=== PATIENT | female | born 1950 | race Caucasian/White ===

== ENCOUNTER → 2016-09-27 | Outpatient (CLI) | payer OTHER ==
--- NOTE | 2016-09-27 20:45 | MR ---
MRI Upper Extremity, Right Shoulder History: Right shoulder pain. Evaluate for rotator cuff tear. ICD-10 code M75.101. Technique: MRI was performed of the right shoulder using a 3.0 Dolly MRI system. Oblique coronal, o blique sagittal, and axial images were obtained with standard imaging sequences. The patient did hav e a red area of skin in the upper chest probably representing a mild thermal injury after the procedu re. The department will follow up with the patient. Findings Acromioclavicular Region: Mild degenerative change is seen at the acromioclavicular joint. Mild ant erior curve and lateral downslope to the acromion. Mild subacromial/subdeltoid fluid collection. Rotator Cuff: There is mild abnormal signal intensity in the distal supraspinatus tendon. There is minimal bursal surface and undersurface fraying and attenuation in the distal anterior insertion. Th e infraspinatus and teres minor are unremarkable. There is mild abnormal signal intensity in the dis cal subscapularis tendon, without attenuation. Biceps tendon: The long head of the biceps tendon is seen within the bicipital groove. Intraarticul ar long head of the biceps tendon is unremarkable. Glenohumeral Joint: Abnormal signal intensity is seen in the cartilaginous labral junction of the po sterosuperior labrum indicating a nondisplaced tear in the 11 to 12 o'clock position. No other findi ngs for a labral tear. No evidence for an articular cartilage defect of the glenohumeral joint. The inferior capsule is small and has mild thickening and pericapsular edema. General: No evidence for a Hill-Sachs deformity. No significant axillary lymphadenopathy. Impressions 1. Mild tendinopathy distal supraspinatus tendon, with minimal partial tear. Mild subacromial bursi tis. 2. Nondisplaced posterosuperior labral tear in the 11 to 12 o'clock position. 3. Mild adhesive capsulitis. 4. Mild degenerative change acromioclavicular joint. Mild anterior curve and lateral downslope to t he acromion.
== END ==
LOC: FIMAGING 13:34
PROVIDERS: ATTEND Orthopaedic Surgery
DX: S43.431A Superior glenoid labrum lesion of right shoulder, initial encounter (principal); M75.81 Other shoulder lesions, right shoulder; M75.01 Adhesive capsulitis of right shoulder; M19.011 Primary osteoarthritis, right shoulder

== ENCOUNTER 2016-10-10 06:58 | Day surgery (SDC) | payer OTHER ==
[~2016-10-10 06:58] MED LIST: BUPIVACAINE/EPI 0.5% 30 ML SDV ONE
[2016-10-10] MEDS ORDERED: ACETAMINOPHEN 500 MG TAB PO ONE (08:00)
[2016-10-10] MEDS ORDERED: POVIDONE-IODINE 20 ML in SODIUM CL IRRIG SOLUTION 500 ML IRR ONE (08:00)
[2016-10-10] MEDS ORDERED: ceFAZolin 2 GM/DEXTROSE 100 ML IV ONE (08:00)
[2016-10-10] MEDS ORDERED: MIDAZOLAM 2 MG/2 ML VIAL ONE (08:51)
[2016-10-10] MEDS ORDERED: fentaNYL 100 MCG/2 ML INJ ONE (08:52)
[2016-10-10] MEDS ORDERED: PHENYLEPHRINE HCL 100 MCG/ML SYR ONE (08:56)
[2016-10-10] MEDS ORDERED: PROPOFOL/EMULSION 500 MG/50 ML BOTTLE IV ONE ×2 (08:56→09:48)
--- NOTE | 2016-10-10 12:06 | GOP ---
[f rep st] OPERATIVE REPORT DATE OF OPERATION: 10/10/2016 SURGEON: Deneen Willis MD ANESTHESIA: LMA plus scalene nerve block per surgeon's request. PREOPERATIVE DIAGNOSIS: Right shoulder adhesive capsulitis with shoulder impingement and labral tear . POSTOPERATIVE DIAGNOSIS: Right shoulder adhesive capsulitis with shoulder impingement and labral tea r. PROCEDURE PERFORMED: Right shoulder manipulation under anesthesia with right shoulder arthroscopy wi th debridement of labrum, subacromial bursa, rotator cuff, and capsular scarring, with subacromial de compression, distal clavicle excision. FINDINGS: INDICATIONS: This is a 66-year-old female with a several-month history of right shoulder pain worsen ing with use and with time, despite conservative measures to include physical therapy and anti-inflam matories. MRI exams revealed a significant anterior acromial curve and hook with labral tearing and fibrosis of the glenohumeral capsule. She wishes to have surgery in order to resolve the problem. DESCRIPTION OF PROCEDURE: The patient was brought to the operating room, after the right side had be en identified as the correct side by the patient, nurse, and physician. Once in the operating room, she was given a scalene block on the right side. She was then placed under anesthesia using LMA. On ce asleep, she was placed in a beach chair position with the right upper extremity sterilely prepped and draped in the usual fashion using GSI solution. Once prepped and draped, manipulation was done i n order to gain full 160 degrees of forward flexion, 90 degrees of external rotation, 100 degrees of abduction, and 90 degrees of internal rotation in an abducted position. Once completed, incision was made off the posterolateral corner of the acromion with the camera introduced without difficulty. I nspection of the joint revealed bleeding from the manipulation, along with tearing of the superior an d anterior portions of the labrum, and an abundant amount of scarring around the subscapularis and on the roof of the rotator cuff. She was noted to have fraying of the rotator cuff, but no full-thickn ess tear was noted, therefore, using an in to out technique, an anterior portal was made superolatera l to the coracoid process with 6 x 75 mm threaded cannula placed through the anterior portal. A 3.5 mm smooth shaver was brought through the anterior portal and used to debride and debulk the tears of the superior and anterior portion the labrum and remove the abundant amount of scar around the subsca pularis and the roof of the glenohumeral joint, and remove the frayed portions of the rotator cuff. Once completed, all instruments were removed from the glenohumeral joint. Using the same portal site s, were reintroduced in the subacromial space. A third incision was made 3 cm lateral to the acromia l process in line with the posterior cortex of the clavicle with the camera switched to the lateral p ortal, and alternating with using arthroscopic Bovie tip and a shaver, was used to remove the abundan t amount of bursal and inflammatory tissue within the subacromial space, and remove soft tissue from the undersurface of the acromion. She was noted to have a large anterior acromial curve, and an acro mionizer bur was brought through the posterior portal and used to remove that curve until achieving a flat ceiling. Attention was turned to the distal clavicle, where she was noted to have a short jessica p inferior spur, and this was also removed using a combination of shaver and bur. Once completed, de bridement was done of the bursa overlying the rotator cuff, and there were no holes found in the rota tor cuff with good attachment noted on the greater tuberosity. Once completed, all instruments were removed from the shoulder with 30 cc of Marcaine infused in the subacromial space. The 3 portal site s were then closed using 3-0 nylon suture in a [id number]-[id number] type stitch. The wounds were dressed with Xeroform, 4 x 4's, and Tegaderm. She was completely undraped in the operating room. A sling wa s placed on the right upper extremity. She was then woken up, extubated, transferred [facility], and sent to the recovery room in good condition. /[id number]/MODL
== END 2016-10-10 13:30 | disposition home or self-care (01) ==
LOC: FSGY 06:58
PROVIDERS: ATTEND Orthopaedic Surgery
PROC: 0PB94ZZ Excision of Right Clavicle, Percutaneous Endoscopic Approach (ICD-10-PCS; principal; 2016-10-10 08:30)
PROC: 0RNJXZZ Release Right Shoulder Joint, External Approach (ICD-10-PCS; principal; 2016-10-10 08:30)
PROC: 0MB14ZZ Excision of Right Shoulder Bursa and Ligament, Percutaneous Endoscopic Approach (ICD-10-PCS; principal; 2016-10-10 08:30)
DX: S43.431A Superior glenoid labrum lesion of right shoulder, initial encounter (principal); M75.01 Adhesive capsulitis of right shoulder; M75.41 Impingement syndrome of right shoulder; C71.7 Malignant neoplasm of brain stem; M81.0 Age-related osteoporosis without current pathological fracture
CPT/HCPCS: J0171; J0690; J2250; J2370; J2704; J3010

== ENCOUNTER → 2016-11-15 | Outpatient (CLI) | payer OTHER ==
[~2016-11-15] MED LIST changes: -BUPIVACAINE/EPI 0.5% 30 ML SDV ONE; +GADOBUTROL 10 ML VIAL IVP ONE
== END ==
LOC: FIMAGING 10:43
PROVIDERS: ATTEND Radiology Diagnostic Radiology
DX: Z98.890 Other specified postprocedural states (principal)
CPT/HCPCS: A9585

== ENCOUNTER 2016-12-12 05:18 | Inpatient (IN) | payer OTHER ==
[2016-12-12] MEDS ORDERED: LR 1,000 ML IV ONE (06:42)
[2016-12-12] MEDS ORDERED: CALCIUM CHLORIDE 1 GM/10 ML INJ ONE (06:47)
[2016-12-12] MEDS ORDERED: BUPIVACAINE/EPI 0.5% 30 ML SDV ONE (06:47)
[2016-12-12] MEDS ORDERED: POLYMYXIN B SULFATE 500,000 UNIT/10 ML SYR IRR ONE (06:49)
[2016-12-12] MEDS ORDERED: BACITRACIN 50,000 UNITS/10 ML SYR IRR ONE (06:50)
[2016-12-12] MEDS ORDERED: THROMBIN (BOVINE) 5,000 UNIT VIAL TP ONE (06:52)
[2016-12-12] MEDS ORDERED: fentaNYL 250 MCG/5 ML INJ ONE (06:55)
[2016-12-12] MEDS ORDERED: MIDAZOLAM 2 MG/2 ML VIAL ONE ×4 (06:56→07:18)
[2016-12-12] MEDS ORDERED: PROPOFOL/EMULSION 500 MG/50 ML BOTTLE IV ONE (07:00)
[2016-12-12] MEDS ORDERED: PROPOFOL 200 MG/20 ML VIAL ONE (07:27)
[2016-12-12] MEDS ORDERED: CEFAZOLIN 2 GM/DEXTR 100 ML IV ONE (07:30)
[2016-12-12] MEDS ORDERED: ACETAMINOPHEN 325 MG TAB PO ONE (07:30)
[2016-12-12] MEDS ORDERED: ROPI/epiNEPH/KETOROLAC/morphINE JOINT COCKTAIL IU ONE (07:30)
[2016-12-12] MEDS ORDERED: DEXAMETHASONE 4 MG/ML VIAL IVP ONE (07:30)
[2016-12-12] MEDS ORDERED: FAMOTIDINE 20 MG TAB PO ONE (07:30)
[2016-12-12] MEDS ORDERED: CHLORHEXIDINE GLUC HIBICLENS 118 ML BTL TP ONE (07:30)
[2016-12-12 09:27] LABS: % IMMATURE GRANULYOCYTES 0.4 % (0.0-1.1); ABSOLUTE IMMATURE GRANULOCYTES 0.02 10^3/uL (0.00-0.10); ADD DIFF? NO; ADD MORPH? NO; ADD SCAN? NO; ATYPICAL LYMPHOCYTE FLAG 20 (0-99); FRAGMENT RBC FLAG 0 (0-99); HEMATOCRIT 33.9 % (38.0-47.0); HEMOGLOBIN 11.7 g/dL (12.6-16.3); LEFT SHIFT FLG 0 (0-99); LIPEMIA HEMOLYSIS FLAG 90 (0-99); MEAN CELL HEMOGLOBIN 31.4 pg (27.9-34.1); MEAN CELL HEMOGLOBIN CONCENTR. 34.5 g/dL (32.4-36.7); MEAN CELL VOLUME 90.9 fL (81.5-99.8); PLATELET CLUMPS FLAG 0 (0-99); PLATELET COUNT 179 10^3/uL (150-400); RED BLOOD CELL COUNT 3.73 10^6/uL (4.18-5.33); RED CELL DISTRIBUTION WIDTH 12.2 % (11.5-15.2)
[2016-12-12] MEDS ORDERED: ONDANSETRON 4 MG/2 ML VIAL IVP PRN (10:16)
[2016-12-12] MEDS ORDERED: PROMETHAZINE HCL 25 MG SUPPR PR PRN (10:16)
[2016-12-12] MEDS ORDERED: BISACODYL 10 MG SUPP PR PRN (10:16)
[2016-12-12] MEDS ORDERED: oxyCODONE IR 5 MG TAB PO PRN (10:16)
[2016-12-12] MEDS ORDERED: diphenhydrAMINE 25 MG CAP PO PRN (10:16)
[2016-12-12] MEDS ORDERED: DIPHENOXYLATE/ATROPINE LOMOTIL 1 TAB PO PRN (10:16)
[2016-12-12] MEDS ORDERED: ONDANSETRON DISINTEGRATING 4 MG TAB PO PRN (10:16)
[2016-12-12] MEDS ORDERED: POLYETHYLENE GLYCOL 3350 17 GM PKT PO PRN (10:16)
[2016-12-12] MEDS ORDERED: PHARMACY PAIN CONSULT 1 EA MISC PRN (10:16)
[2016-12-12] MEDS ORDERED: METOCLOPRAMIDE 10 MG/2 ML VIAL IVP PRN (10:16)
[2016-12-12] MEDS ORDERED: MAGNESIUM HYDROXIDE 30 ML UDCUP PO PRN (10:16)
[2016-12-12] MEDS ORDERED: TEMAZEPAM 15 MG CAP PO PRN (10:16)
[2016-12-12] MEDS ORDERED: LACTULOSE 20 GM/30 ML UDCUP PO PRN (10:16)
--- NOTE | 2016-12-12 10:16 | POSTOPPROG ---
Post Op Note Date of Operation: 12/12/16 Surgeon: Deneen Willis General Farm Manager: urssell monroe Anesthesiologist: beverly Anesthesia: Epidural, LMA Pre-op Diagnosis: r hip oa Procedure: r andrea with fluoro Inf/Abcess present in the surg proc area at time of surgery?: No Depth: Deep Incisional (Fascial) EBL: 500-1000
[2016-12-12] MEDS ORDERED: LR 1,000 ML IV SCH (10:30)
--- NOTE | 2016-12-12 11:23 | GOP ---
[f rep st] OPERATIVE REPORT DATE OF OPERATION: 12/12/2016 SURGEON: Deneen Willis MD ANESTHESIA: Spinal plus LMA. PREOPERATIVE DIAGNOSIS: Right hip osteoarthritis after pelvis fracture. POSTOPERATIVE DIAGNOSIS: Right hip osteoarthritis after pelvis fracture. PROCEDURE PERFORMED: Right total hip arthroplasty with fluoroscopy. FINDINGS: INDICATIONS: This is a 66-year-old female who approximately a year ago had fallen, broken her pelvi s, with protrusio of the femoral head. Secondary to other medical issues going on at the time, it w as decided to treat her conservatively and replace the hip, if needed afterwards. She has made it a pproximately a year, has had osteoarthritic changes and pain in the hip, along with leg shortening. She would like surgery in order to resolve the problem. DESCRIPTION OF PROCEDURE: Patient brought to the operating room. The right side had been identifie d as the correct side by the patient, nurse, and physician. Once in the operating room, she was giv en a spinal nerve block and then placed under anesthesia using LMA. She was then placed on a fractu re table with a well-padded perineal post and both legs placed in appropriate leg nunez. Fluorosco py was used to ensure proper positioning of the pelvis and proper adduction of the femurs. Once in place, the arch table was locked into place against the floor, and the right hip and flank were ster ilely prepped and draped in the usual fashion using GSI solution. Once prepped and draped, incision was made starting 2 cm lateral and inferior to the ASIS and extending in a 15-degree posterior dire ction with sharp dissection carried down through the skin and subcutaneous layers with bleeding cont rolled using electrocautery. Deeper dissection was carried down onto the fascia overlying the tenso r fascia joanne. The fascia was then cut in line with its fibers, with the muscle belly of the TFL re tracted laterally. Deeper dissection revealed the circumflex vessels at the deep portion of the fas cial sheath. These were cauterized and cut. Deeper dissection revealed the fat on the anterior por tion of the hip, which was debrided with blunt Cobra retractors placed in the superior and inferior portion of the femoral neck. A sharp retractor was placed on the anterior portion of the acetabulum , and a T-incision was made through the capsule with stay sutures placed in superior and inferior fl aps. The Cobra retractor was then placed intra-articularly. Oscillating saw was used to cut just a chilo the intertrochanteric line across the femoral neck with the remainder of the cut finished using a flat osteotome. The leg was externally rotated 40 degrees and using a corkscrew the head was rem jimbo. Once removed, the labrum was removed from around the edge of the acetabulum along with the pu lvinar at the base. She had an uneven surface associated with the acetabulum secondary to a prior f racture. Sequential reamers were used, starting at 44 mm and extending up to 49 mm, until achieving bleeding bone and adequate depth. Position of a trial liner was noted to fit securely, and its pos ition was checked under fluoroscopy. Once noted in the proper position, a size 50 mm Tritanium cup from [employer] was put into place with a screw placed in superior and posterior portions of the cup, h olding it securely in place, and a manhole cover placed at its base. The cup position was checked a gain using fluoroscopy, noting proper position, and a 50 x 32 mm polyethylene liner was placed withi n the acetabular shell. Once in place, attention was turned to the femur, which was externally rota megan to 90 degrees. Soft tissue dissection carried around the anterior and superior portion of the f emoral neck, along the greater trochanter. Once the tissue had been adequately released, the leg wa s placed into extension and adduction in order to gain further access to the proximal femur. A cure tte was used to remove medullary bone from the proximal end of the femur, and a rongeur used to debbie ve the superior portion of the femoral neck. Rat tail broach was placed within the femoral canal an d sequential broaches were used up to a size 6, which was noted to fit securely. A trial reduction was performed and noted that there was adequate fill of the proximal femur, and the hip was re-dislo cated, and a size 6 high offset, 120-degree neck Accolade II femoral component from [employer] was put into place. Once noted to fit securely, trial reduction was done with femoral heads. Noted a +0 he ad gave good tissue tension, good stability, and x-ray exam revealed adequate leg lengthening. Ther efore, the hip was re-dislocated, the trial head was removed. The trunnion was washed and dried, an d a 32 mm +0 ceramic head was put into place. Once noted to fit securely, hip was reduced and noted to be very secure and stable, and again, leg length had been significantly improved. Joint cocktai l was injected around the hip capsule and the proximal femur with 30 cc of Marcaine infused around t he skin incision itself. The capsule was closed using 0 Vicryl suture in a afwcui-sj-hltjn type sti tch with plasma gel placed intra-articularly. 0 Vicryl suture was used to close the fascia overlyin g the TFL with plasma gel placed within the TFL sheath. 0 Vicryl and 2-0 Vicryl suture used to clos e the subcutaneous layers, and a 3-0 V-Loc suture in a running subcuticular stitch was used to close the skin. The wound was then dressed with Steri-Strips, Xeroform, 4 x 4, and Tegaderm. She was co mpletely undraped in the operating room. The legs were taken out of the leg nunez. The perineal p ost was removed. Her leg lengths were noted to be equal. She was then woken up, extubated, transfe rred onto a stretcher, and sent to recovery room in good condition. /[id number]/MODL
[2016-12-12] MEDS ORDERED: ONDANSETRON 4 MG/2 ML VIAL ONE (11:35)
[2016-12-12] MEDS ORDERED: ACETAMINOPHEN 325 MG TAB ONE (12:43)
[2016-12-12] MEDS ORDERED: traMADol 50 MG TAB ONE (12:43)
[2016-12-12] MEDS ORDERED: CYCLOBENZAPRINE 10 MG TAB ONE (12:43)
[2016-12-12] MEDS ORDERED: KETOROLAC 30 MG/1 ML SDV ONE (12:44)
[2016-12-12] MEDS ORDERED: PROMETHAZINE HCL 25 MG TAB ONE (13:02)
[2016-12-12] MEDS ORDERED: PROMETHAZINE HCL 25 MG TAB PO PRN (14:06)
[2016-12-12] MEDS: KETOROLAC 30 MG/1 ML SDV IVP SCH ×2 (15:17→21:27)
[2016-12-12] MEDS: ceFAZolin 2 GM/DEXTROSE 100 ML IV SCH ×2 (15:17→22:31)
[2016-12-12] MEDS: ACETAMINOPHEN 325 MG TAB PO SCH ×2 (15:20→21:27)
[2016-12-12] MEDS: traMADol 50 MG TAB PO SCH ×2 (15:21→21:27)
[2016-12-12] MEDS: levETIRAcetam 250 MG TAB PO SCH (18:49)
[2016-12-12] MEDS: CHOLECALCIFEROL VIT D3 1,000 UNITS TAB PO SCH (21:44)
[2016-12-12] MEDS: SENNOSIDES/DOCUSATE SODIUM TAB PO SCH (21:44)
[2016-12-12] MEDS: FAMOTIDINE 20 MG TAB PO SCH (21:45)
[2016-12-12] MEDS: CYCLOBENZAPRINE 10 MG TAB PO PRN (21:47)
[2016-12-13] MEDS: traMADol 50 MG TAB PO SCH ×4 (01:55→17:43)
[2016-12-13] MEDS ORDERED: NS BOLUS 1000 ML (Wide open) IV ONE (02:00)
[2016-12-13] MEDS: ACETAMINOPHEN 325 MG TAB PO SCH ×4 (02:07→18:01)
[2016-12-13] MEDS: KETOROLAC 30 MG/1 ML SDV IVP SCH ×4 (02:07→18:02)
[2016-12-13 05:25] LABS: HEMATOCRIT 25.6 % (38.0-47.0); HEMOGLOBIN 8.7 g/dL (12.6-16.3)
[2016-12-13] MEDS: levETIRAcetam 250 MG TAB PO SCH ×2 (06:24→17:43)
[2016-12-13] MEDS: CHOLECALCIFEROL VIT D3 1,000 UNITS TAB PO SCH ×2 (08:45→19:55)
[2016-12-13] MEDS: MULTIVITAMINS 1 EACH TAB PO SCH (08:46)
[2016-12-13] MEDS ORDERED: RIVAROXABAN 10 MG TAB PO SCH (09:00)
[2016-12-13] MEDS: FAMOTIDINE 20 MG TAB PO SCH ×2 (10:22→20:33)
[2016-12-13] MEDS: FERROUS SULFATE 140 MG TAB.ER PO SCH (10:22)
[2016-12-13] MEDS: SENNOSIDES/DOCUSATE SODIUM TAB PO SCH ×2 (10:22→19:55)
--- NOTE | 2016-12-13 15:24 | SOAPPROG ---
SOAP Progress Note Assessment/Plan: Assessment: Plan: Subjective: doing well and progressing with PT min snag drainange on dressing OOB in chair cont PT and pain meds Objective: Vital Signs Temp Pulse Resp BP Pulse Ox 36.4 C 78 16 80/43 L 96 12/13/16 11:55 12/13/16 11:55 12/13/16 11:55 12/13/16 11:55 12/13/16 11:55 Laboratory Results 12/13/16 04:36 12/12/16 12/13/16 12/14/16 05:59 05:59 05:59 Intake Total 4925 Output Total 2950 550 Balance 1975 - ICD10 Worksheet Patient Problems: Problems Problem Status Onset Acetabular fracture Acute Acute encephalopathy Acute Acute respiratory failure with hypoxia Acute Aspiration pneumonia Acute Brain malignancy Acute Brain neoplasm Acute Lumbar vertebral fracture Acute Right acetabular fracture Acute Seizure Acute Sepsis Acute Thoracic compression fracture Acute Tumor of central nervous system Acute
[2016-12-13] MEDS: TAPENTADOL HCL 50 MG TAB PO PRN ×2 (15:55→19:55)
[2016-12-13] MEDS ORDERED: ENOXAPARIN 40 MG/0.4 ML SYR SC ONE (17:00)
[2016-12-13] MEDS: DOCUSATE SODIUM 100 MG CAP PO SCH (20:33)
[2016-12-13] MEDS: CYCLOBENZAPRINE 10 MG TAB PO PRN (22:30)
[2016-12-14] MEDS: ACETAMINOPHEN 325 MG TAB PO SCH ×3 (01:18→11:40)
[2016-12-14] MEDS: KETOROLAC 30 MG/1 ML SDV IVP SCH ×3 (01:18→11:42)
[2016-12-14] MEDS: traMADol 50 MG TAB PO SCH ×5 (01:19→13:57)
[2016-12-14] MEDS: CYCLOBENZAPRINE 10 MG TAB PO PRN (02:36)
[2016-12-14] MEDS: FERROUS SULFATE 140 MG TAB.ER PO SCH (08:24)
[2016-12-14] MEDS: levETIRAcetam 250 MG TAB PO SCH (08:24)
[2016-12-14] MEDS: SENNOSIDES/DOCUSATE SODIUM TAB PO SCH (08:25)
[2016-12-14] MEDS: DOCUSATE SODIUM 100 MG CAP PO SCH (08:25)
[2016-12-14] MEDS: FAMOTIDINE 20 MG TAB PO SCH (08:26)
[2016-12-14] MEDS: CHOLECALCIFEROL VIT D3 1,000 UNITS TAB PO SCH (08:26)
[2016-12-14] MEDS: MULTIVITAMINS 1 EACH TAB PO SCH (08:27)
[2016-12-14] MEDS: TAPENTADOL HCL 50 MG TAB PO PRN (08:33)
[2016-12-14 08:59] LABS: HEMATOCRIT 26.1 % (38.0-47.0); HEMOGLOBIN 8.8 g/dL (12.6-16.3)
[2016-12-14] MEDS ORDERED: ENOXAPARIN 40 MG/0.4 ML SYR SC SCH (09:00)
[2016-12-14 11:49] VITALS: BP 96/61; PULSE 107; RESP 18; TEMP 98.6; O2SAT 95
--- NOTE | 2016-12-14 12:53 | SOAPPROG ---
SOAP Progress Note Assessment/Plan: Assessment: POD 2 Plan: - d/c home - Nucynta and tramadol, tylenol for pain - follow up in office 12/14/16 12:52 Subjective: Doing well, some sedation from pain meds. Feels ready to go home Objective: Vital Signs Temp Pulse Resp BP Pulse Ox 37.0 C 107 H 18 96/61 L 95 12/14/16 11:48 12/14/16 11:48 12/14/16 11:48 12/14/16 11:48 12/14/16 11:48 Laboratory Results 12/14/16 08:45 12/13/16 12/14/16 12/15/16 05:59 05:59 05:59 Intake Total 4925 1350 Output Total 2950 2400 400 Balance 1974 -0 -400 Wound CDI, calf NT, NVI distally, compartments are soft - Time Spent With Patient Time Spent With Patient: 15 - Pending Discharge Pending Discharge Within 24 Hours: Yes Pending Discharge Within 48 Hours: No Pending Discharge Date: 12/15/16 Pending Discharge Time: 11:00 ICD10 Worksheet Patient Problems: Problems Problem Status Onset Acetabular fracture Acute Acute encephalopathy Acute Acute respiratory failure with hypoxia Acute Aspiration pneumonia Acute Brain malignancy Acute Brain neoplasm Acute Lumbar vertebral fracture Acute Right acetabular fracture Acute Seizure Acute Sepsis Acute Thoracic compression fracture Acute Tumor of central nervous system Acute
--- NOTE | 2016-12-14 12:56 | PDIAF ---
- Diagnosis Code Status: Do Not Resuscitate - Medication Management Discharge Medications: Medications to Continue on Transfer Cholecalciferol Vit D3 [Vitamin D3 (*)] 1,000 units PO BID 10/05/16 [Last Taken 12/03/16] LEVETIRACETAM [Keppra 750 mg] 750 mg PO BID@07,19 10/05/16 [Last Taken 12/12/16 04:30] Multivitamins [Multivitamin (*)] 1 each PO DAILY 11/17/16 [Last Taken 12/03/16] Enoxaparin [Lovenox 40 MG (*)] 40 mg SC DAILY #0 syr 12/14/16 [Last Taken Unknown] Tapentadol HCl [Nucynta 50 MG (*)] 50 mg PO Q4HRS PRN #0 tab 12/14/16 [Last Taken Unknown] traMADol [Ultram 50 mg (*)] 50 mg PO Q6HRS #0 tab 12/14/16 [Last Taken Unknown] Discharge Medications: Refer to the Discharge Home Medication list for PRN reason. PICC Care - Routine: N/A - Orders Services needed: Physical Therapy Diet Recommendation: no restrictions on diet Diet Texture: Regular Texture Diet Cummins: Not applicable Donaldo Stockings Discontinue Date: 12/23/15 Wound Care Instructions: Keep dressing on, may shower over dressing - Follow Up Care Current Providers and Referrals: Kellee Cazares MD [Primary Care Provider] -
== END 2016-12-14 16:42 | disposition home or self-care (01) | DRG 470 ==
LOC: F3N 05:18
PROVIDERS: ADMIT Orthopaedic Surgery; ATTEND Orthopaedic Surgery
PROC: 0SR904Z Replacement of Right Hip Joint with Ceramic on Polyethylene Synthetic Substitute, Open Approach (ICD-10-PCS; principal; 2016-12-12 07:15)
DX: M16.51 Unilateral post-traumatic osteoarthritis, right hip (principal); Z66 Do not resuscitate; Z85.841 Personal history of malignant neoplasm of brain
CPT/HCPCS: 97110-GP; 97116-GP; 97162-GP; 97166-GO; 97530-GO; 97530-GP; 97535-GO; C1713; J0171; J0690; J1100; J1650; J1885; J2250; J2405; J2704; J2795; J3010

== ENCOUNTER → 2017-02-15 | Outpatient (CLI) | payer OTHER | LOC: FIMAGING 13:40 | PROVIDERS: ATTEND Neurological Surgery | DX: G93.9 Disorder of brain, unspecified (principal); Z98.890 Other specified postprocedural states; Z92.3 Personal history of irradiation | CPT/HCPCS: A9585 ==

== ENCOUNTER → 2017-03-12 | Outpatient (CLI) | payer OTHER | LOC: FIMAGING 12:27 | PROVIDERS: ATTEND Internal Medicine | DX: Z12.31 Encounter for screening mammogram for malignant neoplasm of breast (principal); Z80.3 Family history of malignant neoplasm of breast | CPT/HCPCS: G0202 ==

== ENCOUNTER → 2017-04-04 | Outpatient (CLI) | payer OTHER | LOC: FIMAGING 13:41 | PROVIDERS: ATTEND Physician Assistant | DX: M54.9 Dorsalgia, unspecified (principal); Z96.641 Presence of right artificial hip joint ==

== ENCOUNTER → 2017-04-13 | Outpatient (CLI) | payer OTHER | LOC: FIMAGING 12:45 | PROVIDERS: ATTEND Neurological Surgery | DX: M48.06 Spinal stenosis, lumbar region (principal); M51.36 Other intervertebral disc degeneration, lumbar region; S32.010D Wedge compression fracture of first lumbar vertebra, subsequent encounter for fracture with routine healing; S22.089D Unspecified fracture of T11-T12 vertebra, subsequent encounter for fracture with routine healing; R93.8 Abnormal findings on diagnostic imaging of other specified body structures; Z85.841 Personal history of malignant neoplasm of brain | CPT/HCPCS: A9585 ==

== ENCOUNTER → 2017-06-19 | Outpatient (CLI) | payer OTHER, MEDICARE | LOC: FIMAGING 12:49 | PROVIDERS: ATTEND Nurse Practitioner | DX: G93.89 Other specified disorders of brain (principal); M51.36 Other intervertebral disc degeneration, lumbar region | CPT/HCPCS: 70553; A9585 ==

== ENCOUNTER → 2017-07-24 | Outpatient (CLI) | payer OTHER, MEDICARE | LOC: FIMAGING 12:46 | PROVIDERS: ATTEND Nurse Practitioner | DX: G93.9 Disorder of brain, unspecified (principal); M51.36 Other intervertebral disc degeneration, lumbar region | CPT/HCPCS: 70553; A9585 ==

== ENCOUNTER → 2017-10-10 | Outpatient (CLI) | payer OTHER, MEDICARE | LOC: FIMAGING 06:47 | PROVIDERS: ATTEND Physician Assistant | DX: Z48.3 Aftercare following surgery for neoplasm (principal); C70.0 Malignant neoplasm of cerebral meninges | CPT/HCPCS: 70553; A9585 ==

== ENCOUNTER → 2017-12-04 | Outpatient (CLI) | payer OTHER, MEDICARE | LOC: FIMAGING 13:14 | PROVIDERS: ATTEND Neurological Surgery | DX: Z48.3 Aftercare following surgery for neoplasm (principal); Z98.890 Other specified postprocedural states; Z85.841 Personal history of malignant neoplasm of brain | CPT/HCPCS: 70553; A9585 ==

== ENCOUNTER → 2018-03-14 | Outpatient (CLI) | payer OTHER, MEDICARE | LOC: FIMAGING 11:26 | PROVIDERS: ATTEND Neurological Surgery | DX: Z08 Encounter for follow-up examination after completed treatment for malignant neoplasm (principal); G93.9 Disorder of brain, unspecified; Z85.841 Personal history of malignant neoplasm of brain; Z12.31 Encounter for screening mammogram for malignant neoplasm of breast; Z92.3 Personal history of irradiation; Z98.890 Other specified postprocedural states; Z80.3 Family history of malignant neoplasm of breast | CPT/HCPCS: 70553; A9585; 82565-PO ==

== ENCOUNTER → 2018-05-17 | Outpatient (CLI) | payer OTHER, MEDICARE | LOC: FIMAGING 10:28 | PROVIDERS: ATTEND Orthopaedic Surgery | DX: M25.551 Pain in right hip (principal); R93.7 Abnormal findings on diagnostic imaging of other parts of musculoskeletal system; Z96.641 Presence of right artificial hip joint | CPT/HCPCS: 78315; A9503 ==

== ENCOUNTER → 2018-06-17 | Outpatient (CLI) | payer OTHER, MEDICARE | LOC: FIMAGING 10:25 | PROVIDERS: ATTEND Physician Assistant | DX: Z08 Encounter for follow-up examination after completed treatment for malignant neoplasm (principal); Z85.841 Personal history of malignant neoplasm of brain | CPT/HCPCS: 70553; A9585; 82565-PO ==

== ENCOUNTER → 2018-09-07 | Outpatient (CLI) | payer OTHER, MEDICARE | LOC: FIMAGING 11:07 | PROVIDERS: ATTEND Physical Medicine & Rehabilitation | DX: M53.3 Sacrococcygeal disorders, not elsewhere classified (principal) ==

== ENCOUNTER → 2018-10-24 | Outpatient (CLI) | payer OTHER, MEDICARE | LOC: FIMAGING 11:48 | PROVIDERS: ATTEND Physical Medicine & Rehabilitation | DX: M53.85 Other specified dorsopathies, thoracolumbar region (principal); Z87.81 Personal history of (healed) traumatic fracture | CPT/HCPCS: 70553; 72148; A9585; 82565-PO ==

== ENCOUNTER → 2018-12-23 | Outpatient (CLI) | payer OTHER, MEDICARE | LOC: FIMAGING 09:56 | PROVIDERS: ATTEND Neurological Surgery | DX: Z08 Encounter for follow-up examination after completed treatment for malignant neoplasm (principal); Z86.011 Personal history of benign neoplasm of the brain | CPT/HCPCS: 70553; A9585 ==

== ENCOUNTER → 2019-01-13 | Outpatient (CLI) | payer OTHER, MEDICARE | LOC: BRMIMAGING 13:06 | PROVIDERS: ATTEND Internal Medicine Hematology & Oncology | DX: N95.8 Other specified menopausal and perimenopausal disorders (principal); Z78.0 Asymptomatic menopausal state; M81.0 Age-related osteoporosis without current pathological fracture ==

== ENCOUNTER → 2019-03-04 | Outpatient (CLI) | payer OTHER, MEDICARE | LOC: FIMAGING 10:40 ==